=== PATIENT | male | born 1975 | race Caucasian/White ===

== ENCOUNTER 2024-02-05 12:56 | Emergency (ER) | payer OTHER ==
[~2024-02-05] VITALS: Ht 170.1 cm; Wt 88.9 kg
[~2024-02-05 12:56] MED LIST: ANAPROX DS550 MG PO; BENADRYL25 MG PO; HYDROCODONE BIT1 T11 PO; NKHM; NKHM PO; PREDNICOT20 MG PO
[2024-02-05] MEDS ORDERED: CEPHALEXIN500 M1 PO (14:24)
== END 2024-02-05 14:23 | disposition home or self-care (01) ==
LOC: ED 12:56
DX: S61.210A Laceration without foreign body of right index finger without damage to nail, initial encounter (principal); Z98.890 Other specified postprocedural states; Z87.891 Personal history of nicotine dependence; W26.8XXA Contact with other sharp object(s), not elsewhere classified, initial encounter; Y93.89 Activity, other specified; Y92.89 Other specified places as the place of occurrence of the external cause; Y99.0 Civilian activity done for income or pay

== ENCOUNTER 2024-05-13 08:54 | Emergency (ER) | payer OTHER ==
[~2024-05-13] VITALS: Ht 170.1 cm; Wt 88.0 kg
[~2024-05-13 08:54] MED LIST changes: +CEPHALEXIN500 M1 PO
[2024-05-13] MEDS ORDERED: Cyclobenzaprine Hydrochlorid 10 MG TAB PO ONE (09:10)
[2024-05-13] MEDS ORDERED: Dexamethasone Sodium Phospha 20 MG/5 ML VIAL IM ONE (09:10)
[2024-05-13] MEDS ORDERED: Ketorolac Tromethamine 30 MG/ML VIAL IM ONE (09:10)
[2024-05-13] MEDS ORDERED: LIDOCAINE 1 EA PATCH T ONE (09:55)
[2024-05-13] MEDS ORDERED: Acetaminophen/Oxycodone 5 MG/325 MG TABLET PO ONE (09:55)
[2024-05-13] MEDS ORDERED: CYCLOBENZAPRINE5 M3 PO (09:59)
[2024-05-13] MEDS ORDERED: MELOXICAM15 MG PO (09:59)
[2024-05-13] MEDS ORDERED: PAIN RELIEF PA1 EACH T (09:59)
== END 2024-05-13 10:03 | disposition home or self-care (01) ==
LOC: ED 08:54
DX: M62.830 Muscle spasm of back (principal); M25.551 Pain in right hip; Z98.890 Other specified postprocedural states